=== PATIENT | female | born 1925 | race Caucasian/White ===

== ENCOUNTER 2017-03-11 14:23 | Emergency (ER) | payer MEDICARE, OTHER ==
[~2017-03-11] VITALS: Ht 162.6 cm; Wt 82.0 kg
[~2017-03-11 14:23] MED LIST: ASPI325T PO; ATOR10TA PO; B12-1CHW CHEW; CALCGRA15 PO; CITRTAB8 PO; CLON.5 PO; DOXY100T PO; FENT12DI TD; LEVO.1 PO; LEVO88TA2 PO; LISI2.5T3 PO; LISI2.5T55 PO; LORTA5 PO; LOVA40TA PO; OCUV; OCUVTAB PO; OMEP20TA PO; OMPR20CCR PO; PARO40TA PO; PAXI40TA PO; PRIL20CA PO; SPIR50TA PO; SPIR50TA21 PO; VITA-13 PO; VITA100020; VITA500015 PO
[2017-03-11 14:29] VITALS: BP 106/60; PULSE 101; RESP 16; TEMP 98.2; O2SAT 95
[2017-03-11] MEDS ORDERED: SODIUM CHLORIDE 0.9% FLUSH 10 ML FLUSH IVF PRN (15:30)
[2017-03-11 15:34] VITALS: BP 115/56; PULSE 68; RESP 16; O2SAT 98
--- NOTE | 2017-03-11 15:37 | PD ---
HPI Chief Complaint: Respiratory Symptoms Time Seen by Provider: 15:16 Travel History International Travel<30 days: No Contact w/Intl Traveler<30days: No Traveled to known affect area: No History of Present Illness HPI 89-year-old female presents with diffuse body aches and cough over the past couple weeks. She presents with her daughter who help supplement history. Her daughter is concerned because they keep just giving her breathing treatments and Robitussin and she wants to make sure not missing something. The patient denies other concurrent complaints. The patient's daughter states she has not been acting herself lately. She provides paperwork from the custodial to confirm her past history and medications. She shows that they did a urine specimen yesterday and on review this has infection versus contamination given many epithelial cells. Patient is a poor historian [facility] Past Medical History Narrative Medical By record Hx Anticoagulant Therapy: Yes (ASA) Arthritis: Yes Asthma: No Atrial Fibrillation: Yes Autoimmune Disease: No Blood Disorders: No Anxiety: Yes Depression: Yes Heart Rhythm Problems: No Cancer: No Cardiac Catheterization: No Cardiovascular Problems: Yes (HTN, CHOL) High Cholesterol: Yes Chemotherapy: No Chest Pain: No Congestive Heart Failure: Yes COPD: No Cerebrovascular Accident: Yes (CVA) Diabetes: No Diminished Hearing: Yes (SLIGHT BILATERALLY) Endocrine: Yes Fibromyalgia: Yes Genitourinary: No Hiatal Hernia: Yes Hypertension: Yes Immune Disorder: No Implanted Vascular Access Dvce: Yes ([employer]TRON[employer] PAIN PUMP FOR ARTHITIS IN BACK - DILAUDID 12/02/2012 IN RLQ) Musculoskeletal: No Neurologic: No Psychiatric: Yes Reproductive: No Respiratory: No Myocardial Infarction: No Pneumonia: Yes Radiation Therapy: No Sleep Apnea: No Thyroid Disease: Yes ?: Not Menopausal: Yes : 2 Para: 2 Past Surgical History Narrative Surgical By records Abdominal Surgery: No Body Medical Devices: pain pump placement Cardiac Surgery: No Section: Yes Coronary Artery Bypass Graft: No Ear Surgery: No Endocrine Surgery: No Eye Surgery: No Genitourinary Surgery: No Gynecologic Surgery: Yes (hysterectomy) Hysterectomy: Yes Thoracic Surgery: No Other Surgery: Yes (pain pump placement) Social History Alcohol Use: No Tobacco Use: No Substance Use: No Allergies-Medications (Allergen,Severity, Reaction): Coded Allergies: Levaquin (Verified Allergy, Severe, HALLUCINATIONS, 03/11/17) MRI PRECAUTION (Unverified Allergy, Severe, 03/11/17) HAS PAIN PUMP Morphine (Verified Allergy, Severe, 03/11/17) Atenolol (Verified Allergy, Mild, 03/11/17) Reported Meds & Prescriptions Reported Meds & Active Scripts Active Cefdinir 300 Mg Cap 300 Mg PO DAILY 5 Days Reported Zofran (Ondansetron HCl) 4 Mg Tab 4 Mg PO Q8HR PRN Robitussin Peak Cold Dm 100-10 mg/5Ml (Dextromethorphan-Guaifenesin) 1 Syp Syp 10 Ml PO Q8HR PRN Jackson (Hydrocodone-Acetaminophen) 5-325 mg Tab 1 Tab PO Q8HR PRN Melatonin 3 mg Tablet (Melatonin/Pyridoxine HCl (B6)) 1 Each Tablet 1 Tab PO HS PRN Klonopin (Clonazepam) 0.5 Mg Tab 0.5 Mg PO BID PRN Duoneb (Ipratropium-Albuterol Neb) 0.5-2.5 Mg/3 Ml Neb 1 Nebule INH Q6HR NEB Acetaminophen 325 Mg Capsule 2 Cap PO Q4HR PRN Trazodone (Trazodone HCl) 50 Mg Tab 50 Mg PO HS Omeprazole Magnesium 20.6 Mg Cap 1 Tab PO DAILY Miralax Powder (Polyethylene Glycol 3350 Powder) 17 Gm Powd 17 Gm PO HS Mix and dissolve one measuring cap-ful (17 grams) in water or juice. Lisinopril 2.5 Mg Tab 2.5 Mg PO DAILY Levothyroxine (Levothyroxine Sodium) 75 Mcg Tab 75 Mcg PO DAILY Lasix (Furosemide) 20 Mg Tab 20 Mg PO DAILY Gabapentin 100 Mg Cap 200 Mg PO HS Duloxetine DR (Duloxetine HCl) 30 Mg Capdr 30 Mg PO DAILY Cranberry (Cranberry Fruit Concentrate) 450 Mg Capsule 450 Mg PO DAILY Atorvastatin (Atorvastatin Calcium) 10 Mg Tab 10 Mg PO HS Aspirin 325 Mg Tab 325 Mg PO DAILY Review of Systems Except as stated in HPI: all other systems reviewed are Neg Physical Exam Narrative GENERAL: Well-nourished, well-developed patient. SKIN: Warm and dry. HEAD: Normocephalic and atraumatic. EYES: No injection or drainage. ENT: No nasal drainage noted. NECK: Supple, trachea midline. CARDIOVASCULAR: Regular rate and rhythm RESPIRATORY: Breath sounds equal bilaterally. No accessory muscle use. GASTROINTESTINAL: Abdomen soft, non-tender, nondistended. NEUROLOGICAL: Awake. Right sided weakness from prior stroke. Normal speech. Data Data Last Documented VS Vital Signs Date Time Temp Pulse Resp B/P Pulse Ox O2 Delivery O2 Flow Rate FiO2 03/11/17 16:33 66 16 135/69 98 Room Air 03/11/17 14:29 98.2 Orders Basic Metabolic Panel (Bmp) (03/11/17 15:23) Complete Blood Count With Diff (03/11/17 15:23) Influenzae A/B Antigen (03/11/17 15:23) Urinalysis - C+S If Indicated (03/11/17 15:23) Chest, Pa & Lat (03/11/17 15:23) Ecg Monitoring (03/11/17 15:23) Iv Access Insert/Monitor (03/11/17 15:23) Oximetry (03/11/17 15:23) Sodium Chloride 0.9% Flush (Ns Flush) (03/11/17 15:30) Creatine Kinase (Cpk) (03/11/17 15:24) Urine Culture (03/11/17 15:45) Ceftriaxone Inj (Rocephin Inj) (03/11/17 16:30) CKMB (03/11/17 16:00) CKMB% (03/11/17 16:00) Labs Laboratory Tests Test 03/11/17 03/11/17 15:45 16:00 Urine Collection Type CATH Urine Color YELLOW Urine Turbidity CLEAR Urine pH 5.5 Urine Specific [place] 1.013 Urine Protein 30 mg/dL Urine Glucose (UA) NEG mg/dL Urine Ketones NEG mg/dL Urine Occult Blood MOD Urine Nitrite NEG Urine Bilirubin NEG Urine Leukocyte Esterase MOD Urine RBC 25-49 /hpf Urine WBC INNUM /hpf Urine Squamous Epithelial 0-5 /hpf Cells Urine Bacteria MOD /hpf Microscopic Urinalysis Comment CATH-CULTURE IND Urine Collection Time 15:45 White Blood Count 8.3 TH/MM3 Red Blood Count 3.92 MIL/MM3 Hemoglobin 11.6 GM/DL Hematocrit 34.7 % Mean Corpuscular Volume 88.6 FL Mean Corpuscular Hemoglobin 29.5 PG Mean Corpuscular Hemoglobin 33.3 % Concent Red Cell Distribution Width 13.5 % Platelet Count 312 TH/MM3 Mean Platelet Volume 8.8 FL Neutrophils (%) (Auto) 66.6 % Lymphocytes (%) (Auto) 18.2 % Monocytes (%) (Auto) 7.7 % Eosinophils (%) (Auto) 6.5 % Basophils (%) (Auto) 1.0 % Neutrophils # (Auto) 5.6 TH/MM3 Lymphocytes # (Auto) 1.5 TH/MM3 Monocytes # (Auto) 0.6 TH/MM3 Eosinophils # (Auto) 0.5 TH/MM3 Basophils # (Auto) 0.1 TH/MM3 CBC Comment DIFF FINAL Differential Comment Sodium Level 142 MEQ/L Potassium Level 3.4 MEQ/L Chloride Level 104 MEQ/L Carbon Dioxide Level 28.2 MEQ/L Anion Gap 10 MEQ/L Blood Urea Nitrogen 16 MG/DL Creatinine 1.30 MG/DL Estimat Glomerular Filtration 39 ML/MIN Rate Random Glucose 90 MG/DL Calcium Level 8.7 MG/DL Total Creatine Kinase 270 U/L Creatine Kinase MB 0.7 NG/ML Creatine Kinase MB % 0.3 % MDM Medical Decision Making Medical Screen Exam Complete: Yes Emergency Medical Condition: Yes Medical Record Reviewed: Yes (past history confirmed) Interpretation(s) CBC & BMP Diagram 03/11/17 16:00 Last 24 hours Impressions Chest X-Ray 03/11/17 1523 Signed Impressions: Service Date/Time: Saturday, March 11, 2017 15:31 - CONCLUSION: No acute disease. Mark Farley MD with uti Differential Diagnosis Pneumonia, anemia, renal failure, UTI, electrolyte abnormality, rhabdomyolysis Narrative Course Will check blood work, catheter urine specimen, chest x-ray and reevaluate ED workup with urinary tract infection. Patient without white count, fever, hypotension or altered mental status. Lengthy discussion with daughter. Patient given Rocephin here and will be discharged on Omnicef. Daughter is happy with this plan, given return instructions, patient denies new complaints Diagnosis Primary Impression: UTI (urinary tract infection) Qualified Code: N39.0 - Urinary tract infection without hematuria, site unspecified Additional Impression: Myalgia Patient Instructions: General Instructions Additional Instructions: return as needed, follow with primary tommorrow, tylenol as needed Med/Other Pt SpecificInfo: Prescription(s) given Scripts Cefdinir 300 Mg Adp611 Mg PO DAILY 5 Days Ref 0 Prov:Lana Tripathi MD 03/11/17 Disposition: 03 DISCHARGE TO SNF Condition: Stable Lana Tripathi MD Mar 11, 2017 15:37
[2017-03-11] MEDS ORDERED: FURO1TAB62 PO (15:44)
[2017-03-11] MEDS ORDERED: TH C450C PO (15:44)
[2017-03-11] MEDS ORDERED: CLON.5 PO (15:44)
[2017-03-11] MEDS ORDERED: TRAZ50TA12 PO (15:44)
[2017-03-11] MEDS ORDERED: ZOFR4TAB PO (15:44)
[2017-03-11] MEDS ORDERED: ACET325C PO (15:44)
[2017-03-11] MEDS ORDERED: MIRA3350 PO (15:44)
[2017-03-11] MEDS ORDERED: GABA100C4 PO (15:44)
[2017-03-11] MEDS ORDERED: LISI2.5T3 PO (15:44)
[2017-03-11] MEDS ORDERED: MELA3TAB15 PO (15:44)
[2017-03-11] MEDS ORDERED: NORC5TAB PO (15:44)
[2017-03-11] MEDS ORDERED: DULO1CAP2 PO (15:44)
[2017-03-11] MEDS ORDERED: ATOR10TA15 PO (15:44)
[2017-03-11] MEDS ORDERED: IPRASOL INH (15:44)
[2017-03-11] MEDS ORDERED: ROBISYP8 PO (15:44)
[2017-03-11] MEDS ORDERED: ASPI325T PO (15:44)
[2017-03-11] MEDS ORDERED: OMEP20.6 PO (15:44)
[2017-03-11] MEDS ORDERED: LEVO75TA3 PO (15:44)
[2017-03-11 15:45] VITALS: RESP 16; O2SAT 98
[2017-03-11 16:02] LABS: GLUCOSE,URINE NEG (NEG); KETONE, URINE NEG (NEG); NITRITE,URINE NEG (NEG); PH, URINE 5.5 (5.0-8.5)
--- NOTE | 2017-03-11 16:04 | RADHPO ---
EXAM DATE/TIME: 03/11/2017 15:31 [facility] COMPARISON: CHEST PA & LAT, January 18, 2015, 11:41. INDICATIONS : Cough and congestion for over two weeks. MEDICAL HISTORY : Stroke. SURGICAL HISTORY : None. ENCOUNTER: Initial ACUITY: 2 weeks PAIN SCORE: 0/10 LOCATION: Bilateral chest FINDINGS: PA and lateral views of the chest demonstrate the lungs to be symmetrically aerated without evidence of mass, infiltrate or effusion. The cardiomediastinal contours are unremarkable. Osseous structure s are intact. CONCLUSION: No acute disease. Mark Farley MD on March 11, 2017 at 16:01 Board Certified Radiologist. This report was verified electronically.
[2017-03-11 16:07] LABS: BLOOD, URINE MOD (NEG)
[2017-03-11 16:10] LABS: METHOD OF COLLECTION CATH; URINE COLOR YELLOW (YELLW/STRAW)
[2017-03-11 16:11] LABS: BACTERIA, URINE MOD /hpf; COMMENT (UR) CATH-CULTURE IND; CULTURE IF INDICATED CATH CULTURE IND; SQUAMOUS EPITHELIAL CELL URINE 0-5 /hpf (0-5); WBC, URINE INNUM /hpf (0-5)
[2017-03-11 16:12] LABS: AUTOMATED NEUTROPHIL # 5.6 TH/MM3 (1.8-7.7); BASOPHIL # 0.1 TH/MM3 (0-0.2); EOSINOPHIL # 0.5 TH/MM3 (0-0.4); EOSINOPHIL % 6.5 % (0.0-4.0); HEMATOCRIT 34.7 % (35.0-46.0); HEMO FLAGS DIFF FINAL; LYMPH % 18.2 % (9.0-44.0); LYMPHOCYTE # 1.5 TH/MM3 (1.0-4.8); MEAN CELL VOLUME 88.6 FL (80.0-100.0); MEAN CORPUSCULAR HEMOGLOBIN 29.5 PG (27.0-34.0); MEAN CORPUSCULAR HGB CONC 33.3 % (32.0-36.0); MONO % 7.7 % (0.0-8.0); NEUT % 66.6 % (16.0-70.0); PLATELET COUNT 312 TH/MM3 (150-450); RED BLOOD COUNT 3.92 MIL/MM3 (4.00-5.30); RED CELL DISTRIBUTION WIDTH 13.5 % (11.6-17.2); WHITE BLOOD COUNT 8.3 TH/MM3 (4.0-11.0)
[2017-03-11 16:29] LABS: POTASSIUM 3.4 MEQ/L (3.5-5.1)
[2017-03-11] MEDS ORDERED: cefTRIAXone INJ 1,000 MG in SODIUM CHLORIDE 0.9% INJ 100 ML IV ONE (16:30)
[2017-03-11 16:32] LABS: BICARBONATE 28.2 MEQ/L (21.0-32.0)
[2017-03-11 16:33] VITALS: BP 135/69; PULSE 66; RESP 16; O2SAT 98
[2017-03-11 17:33] VITALS: BP 128/63; PULSE 69; RESP 16; O2SAT 98
[2017-03-11 17:35] LABS: CKMB 0.7 NG/ML (0.5-3.6)
[2017-03-11] MEDS ORDERED: CEFD300C PO (18:13)
[2017-03-11 18:40] VITALS: BP 123/68
== END 2017-03-11 18:47 ==
LOC: PHED 14:23
DX: N39.0 Urinary tract infection, site not specified (principal); B96.29 Other Escherichia coli [E. coli] as the cause of diseases classified elsewhere; M79.1 Myalgia
CPT/HCPCS: 71020; 80048; 81001; 82550; 82552; 85025; 87077; 87086; 87186; 87804; 96365; 99284; J0696